=== PATIENT | male | born 1955 | race Caucasian/White ===

== ENCOUNTER 2025-10-08 12:45 | Outpatient (CLI) | payer SELFPAY ==
[2025-10-08 12:55] VITALS: BMI 28.5
--- NOTE | 2025-10-08 12:55 | ECG_ITS ---
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 Interpretive Statements Findings:The baseline blood pressure was 157/90 mmHg with a heart rate of 91 bpm. The patient exercised on the Benson protocol For total of 5 minutes and 59 seconds.. The patient's peak blood pressure was 202/103 mmHg with a maximum heart rate of 141 bpm which was 95% of the maximum predicted heart rate. The patient achieved 7 METS. The baseline EKG showed normal sinus rhythm with significant ST depression and T wave inversions in the inferior and anterolateral leads. There was mild worsening of the ST and T wave abnormalities during exercise and into recovery. In recovery there was development of frequent premature ventricular contractions. CONCLUSION: 1. Exercise capacity was average for age. 2. Heart rate response was appropriate. 3. Blood pressure response was hypertensive. 4. No symptoms of angina during exercise. 5. Electrocardiogram portion of the stress test is indeterminate for ischemia due to resting ST depression and T wave inversions. 6. Echocardiogram portion of the stress test reported separately. Electronically Signed On 10-08-2025 18:44:21 [employer] by Gavin Pelaez M.D. [email or web address]
--- NOTE | 2025-10-08 12:56 | USCV_ITS ---
Stress Echo Jordi Lopes Age: 69 Gender: M : 1955 Exam Date: 10/08/2025 13:18 Ordering Phys: Gavin Pelaez MD ([email or web address]) Technologist: Exam Location: [facility] [place] Indication: Abnormal EKG Rhythm: Sinus Patient History: Former Smoker, HLD, HTN Cardiac Medications: Aspirin 81mg QD, Metoprolol 100mg QD Medications in past 24 hours: None Contrast: Stress Results Protocol: Benson Total dose(mL): Exercise Duration (min:sec): 5:59 METS: 7.0 Resting HR: 73 Resting BP: 157 / 90 Peak HR: 141 Peak BP: 202 / 103 Max Predicted HR: 149 95 % Max Predicted HR Target HR: 127 Double Product: 58425 Stress Summary: The patient's target heart rate was achieved The patient exhibited a hypertensive response with stress The patient's target heart rate was achieved BP Response: Abnormal increase in BP during/after stress Reason for Termination: Test terminated after reaching target heart rate (95% max predicted) Cardiac Symptoms: None ECG Analysis Resting ECG: Normal sinus rhythm with significant ST depression and T wave inversions in the inferior and anterolateral leads. Stress ECG: Mild worsening of the baseline ST and T wave abnormalities. Indeterminate for inducible ischemia due to resting ST and T wave abnormalities. Arrhythmia: Frequent premature ventricular contractions occurred at the beginning of recovery which resolved within 2 minutes. MEASUREMENTS (Male/Female) Normal Values FINDINGS 1. Normal resting left ventricular cavity size. Resting left ventricular wall motion: Hypokinesis of the mid and basal inferior and inferoseptal wall segments. Mildly reduced left ventricular systolic function with an estimated ejection fraction of 45 - 50%. 2. Of the myocardial segments that were well-visualized, there was normal augmentation of contractility with exercise. The inferior wall was not well-visualized on the stress images. There was some partial augmentation of contractility of the basal inferior wall segment seen on the recovery images. 3. Normal left ventricular wall thickness. CONCLUSIONS 1. Findings consistent with a small area of myocardial infarction in the mid inferior wall segment with viable myocardium in the mid and basal inferoseptal and basal inferior wall segments. No evidence of inducible ischemia. 2. Mildly reduced left ventricular systolic function at baseline, EF 45 to 50%. 3. Normal left ventricular wall thickness Gavin Pelaez MD, FACC (Electronically Signed) Final Date: 08 October 2025 19:03 S
[2025-10-08 13:35] VITALS: BP 141/64; PULSE 92
== END 2025-10-08 12:46 | disposition home or self-care (01) ==
LOC: CDL 12:49
PROVIDERS: PCP Family Medicine; Visit Provider Internal Medicine Cardiovascular Disease
DX: R94.30 Abnormal result of cardiovascular function study, unspecified (principal); I51.4 Myocarditis, unspecified; I51.89 Other ill-defined heart diseases
CPT/HCPCS: 93017; 93350